=== PATIENT | female | born 1990 | race Caucasian/White ===

== ENCOUNTER 2016-12-03 19:24 | Emergency (ER) | payer MEDICAID ==
[~2016-12-03] VITALS: Ht 165.1 cm; Wt 79.4 kg
[2016-12-03 19:31] VITALS: BP 140/83
--- NOTE | 2016-12-03 22:39 | NUR ---
PT TAKEN TO BED 5
--- NOTE | 2016-12-03 22:40 | NUR ---
PATIENT PRESENTS TO ED WITH C/O BILAT EYE PAIN X 1 DAY S/P EYELASH EXTENSION THIS MORNING . PT STATES SHE HAS BEEN HAVING WATERY DISCHARGE, BUT DENIES ANY DIFFICULT SEEING. PT DENIES N/V/D; SKIN IS PINK/WARM/DRY; AAOX4 WITH EVEN AND STEADY GAIT; LUNGS CLEAR BL; HR EVEN AND REGULAR; PT DENIES ANY FEVER, CP, SOB, OR COUGH AT THIS TIME; PATIENT STATES PAIN OF 10/10 AT THIS TIME; VSS; PATIENT POSITIONED FOR COMFORT; HOB ELEVATED; BEDRAILS UP X2; BED DOWN. ER MD MADE AWARE OF PT STATUS.
--- NOTE | 2016-12-03 23:51 | NUR ---
Dr. Rahman evaluating patient at bedside.
--- NOTE | 2016-12-04 00:16 | NUR ---
Patient discharged with v/s stable. Written and verbal after care instructions given and explained. Patient alert, oriented and verbalized understanding of instructions. Ambulatory with steady gait. All questions addressed prior to discharge. ID band removed. Patient advised to follow up with PMD. Rx of CIPROLFOXACIN 0.3% DONIS, AND MOTRIN 800MG given. Patient educated on indication of medication including possible reaction and side effects. Opportunity to ask questions provided and answered.
[2016-12-04 00:17] VITALS: BP 124/79
== END 2016-12-04 00:16 | disposition home or self-care (01) ==
LOC: MED 19:24
DX: H10.31 Unspecified acute conjunctivitis, right eye (principal); Z90.49 Acquired absence of other specified parts of digestive tract
CPT/HCPCS: 99283; J7060

== ENCOUNTER 2018-07-12 15:14 | Emergency (ER) | payer MEDICAID ==
[~2018-07-12] VITALS: Ht 165.1 cm; Wt 61.3 kg
[2018-07-12 15:24] VITALS: BP 135/77
--- NOTE | 2018-07-12 15:26 | NUR ---
PT TRIAGED AND SENT TO ER LOBBY
--- NOTE | 2018-07-12 15:57 | NUR ---
PT AMBULATED TO ER BED 9
[2018-07-12 17:13] VITALS: BP 125/78
--- NOTE | 2018-07-12 17:14 | NUR ---
Patient discharged with v/s stable. Written and verbal after care instructions given and explained. Patient alert, oriented and verbalized understanding of instructions. Ambulatory with steady gait. All questions addressed prior to discharge. ID band removed. Patient advised to follow up with PMD. Rx of CLARITIN AND NAPROSYN given. Patient educated on indication of medication including possible reaction and side effects. Opportunity to ask questions provided and answered.
== END 2018-07-12 17:14 | disposition home or self-care (01) ==
LOC: MED 15:14
DX: R51 Headache (principal); J34.89 Other specified disorders of nose and nasal sinuses; Z91.040 Latex allergy status; Z91.012 Allergy to eggs
CPT/HCPCS: 99282

== ENCOUNTER 2018-11-22 19:50 | Emergency (ER) | payer MEDICAID ==
[~2018-11-22] VITALS: Ht 165.1 cm; Wt 76.7 kg
[2018-11-22 19:58] VITALS: BP 125/67
--- NOTE | 2018-11-22 20:06 | NUR ---
PT AMBUALTED BACK TO LOBBY, REGINA
--- NOTE | 2018-11-22 20:20 | NUR ---
PT AMBULATED TO CHAIR B
--- NOTE | 2018-11-22 20:25 | NUR ---
CAME IN WITH C/O COUGH FOR 3 DAYS .
--- NOTE | 2018-11-22 20:49 | NUR ---
PA WITH PT
[2018-11-22 21:01] VITALS: BP 120/70
--- NOTE | 2018-11-22 21:01 | NUR ---
Patient discharged with v/s stable. Written and verbal after care instructions given and explained. Patient alert, oriented and verbalized understanding of instructions. Ambulatory with steady gait. All questions addressed prior to discharge. ID band removed. Patient advised to follow up with PMD. Rx of PROMETHAZINE DM given. Patient educated on indication of medication including possible reaction and side effects. Opportunity to ask questions provided and answered.
== END 2018-11-22 21:01 | disposition home or self-care (01) ==
LOC: MED 19:50
DX: J06.9 Acute upper respiratory infection, unspecified (principal); Z91.040 Latex allergy status; Z91.012 Allergy to eggs
CPT/HCPCS: 99283

== ENCOUNTER 2022-01-06 23:09 | Emergency (ER) | payer OTHER, MEDICAID ==
[~2022-01-06] VITALS: Ht 165.1 cm; Wt 74.8 kg
[2022-01-06 23:47] VITALS: BP 132/83
--- NOTE | 2022-01-07 01:53 | NUR ---
Dr. Santos examining patient.
[2022-01-07] MEDS ORDERED: NAPROXEN 500 MG TAB PO STA (02:09)
[2022-01-07] MEDS ORDERED: IBUPROFEN 600 MG TAB PO ONE (02:20)
[2022-01-07] MEDS ORDERED: NAPR-54 PO (02:30)
[2022-01-07] MEDS ORDERED: CYCL-711 PO (02:30)
[2022-01-07] MEDS ORDERED: ACET-10509 PO (02:30)
[2022-01-07 02:44] VITALS: BP 132/83
--- NOTE | 2022-01-07 02:44 | NUR ---
Patient discharged with v/s stable. Written and verbal after care instructions given and explained. Patient alert, oriented and verbalized understanding of instructions. Ambulatory with steady gait. All questions addressed prior to discharge. ID band removed. Patient advised to follow up with PMD. Rx of Ibuprofen, Flexeril and Naproxen given. Patient educated on indication of medication including possible reaction and side effects. Opportunity to ask questions provided and answered.
== END 2022-01-07 02:44 | disposition home or self-care (01) ==
LOC: MED 23:09
DX: S33.5XXA Sprain of ligaments of lumbar spine, initial encounter (principal); S20.212A Contusion of left front wall of thorax, initial encounter; V49.88XA Car occupant (driver) (passenger) injured in other specified transport accidents, initial encounter; Y93.89 Activity, other specified; Y92.89 Other specified places as the place of occurrence of the external cause; Y99.8 Other external cause status
CPT/HCPCS: 81025; 99285